=== PATIENT | female | born 1960 | race Caucasian/White ===

== ENCOUNTER 2017-02-08 14:04 | Emergency (ER) | payer OTHER ==
[2017-02-08 14:26] VITALS: RESP 18
--- NOTE | 2017-02-08 15:13 | ED PDOC ---
Arrival/HPI - General Chief Complaint: Trauma Time Seen by Provider: 02/08/17 14:30 Historian: Patient - History of Present Illness Narrative History of Present Illness (Text): 02/08/17 15:00 This 56 yo female presents to this ED c/o head injury x 1 day. Patient stated she has a PRYOR. Patient said her chair slipped causing her to fall forward hitting forehead against desk. Delta LOC, n/v, dizziness, dysarthria, diplopia , or abnormal gait. Time/Duration: Other (1 day) Quality: Aching Context: Work Past Medical History - Provider Review Nursing Documentation Reviewed: Yes - Infectious Disease Hx of Infectious Diseases: None - Reproductive Menopause: No - Psychiatric Hx Substance Use: No Family/Social History - Physician Review Nursing Documentation Reviewed: Yes Family/Social History: No Known Family HX Smoking Status: Never Smoked Hx Alcohol Use: No Hx Substance Use: No Allergies/Home Meds Allergies/Adverse Reactions: Allergies No Known Allergies Allergy (Verified 02/08/17 14:26) Review of Systems - Review of Systems Constitutional: Normal. absent: Fatigue, Weight Change, Fevers Eyes: Normal. absent: Vision Changes, Photophobia, Eye Pain ENT: Normal Respiratory: Normal Cardiovascular: Normal Gastrointestinal: Normal. absent: Nausea, Vomiting Genitourinary Female: Normal Musculoskeletal: Normal Skin: Normal Neurological: Headache. absent: Dizziness, Focal Weakness, Gait Changes, Speech Changes, Facial Droop, Disequilibrium, Seizure Endocrine: Normal Hemo/Lymphatic: Normal Psychiatric: Normal Physical Exam Vital Signs Temp Pulse Resp BP Pulse Ox 02/08/17 15:18 98.0 F 91 H 18 131/79 98 02/08/17 14:22 98.4 F 110 H 18 133/84 100 Temperature: Afebrile Blood Pressure: Normal Pulse: Regular Respiratory Rate: Normal Appearance: Positive for: Well-Appearing, Non-Toxic, Comfortable Pain Distress: None Mental Status: Positive for: Alert and Oriented X 3 - Systems Exam Head: Present: Atraumatic, Normocephalic, Other (No raccoon sign. No beckham sign). No: Tenderness, Contusion, Swelling, Ecchymosis, Abrasion Pupils: Present: PERRL, Other (no hyphema) Extroacular Muscles: Present: EOMI. No: Entrapment Conjunctiva: Present: Normal Ears: Present: Normal, NORMAL TM, Normal Canal, Other (no hemotympanum). No: Erythema, TM Bulging, Fluid, TM Perf Mouth: Present: Moist Mucous Membranes, Normal Lips, Normal Tounge. No: Drooling Pharnyx: Present: Normal. No: ERYTHEMA, EXUDATE, TONSILS ENLARGED Nose (External): Present: Atraumatic Nose (Internal): Present: Normal Inspection Neck: Present: Normal Range of Motion, Trachea Midline. No: Meningeal Signs, MIDLINE TENDERNESS, Paraspinal Tenderness, JVD, Lymphadenopathy Respiratory/Chest: Present: Clear to Auscultation, Good Air Exchange. No: Respiratory Distress, Accessory Muscle Use, Tender to Palpation Cardiovascular: Present: Regular Rate and Rhythm, Normal S1, S2. No: Murmurs Abdomen: Present: Normal Bowel Sounds. No: Tenderness, Distention, Peritoneal Signs Back: Present: Normal Inspection. No: CVA Tenderness, Midline Tenderness, Paraspinal Tenderness, Pain with Leg Raise Upper Extremity: Present: Normal Inspection, Normal ROM, NORMAL PULSES, Neurovascularly Intact. No: Cyanosis, Edema Lower Extremity: Present: Normal Inspection, Normal ROM, Capillary Refill < 2 s. No: Edema Neurological: Present: GCS=15, CN II-XII Intact, Speech Normal, Motor Func Grossly Intact, Normal Sensory Function, Normal Cerebellar Funct, Norm Deep Tendon Reflexes, Gait Normal, Memory Normal, Other (No neuro focal deficits) Skin: Present: Warm, Dry, Normal Color. No: Rashes Psychiatric: Present: Alert, Oriented x 3, Normal Insight, Normal Concentration Medical Decision Making ED Course and Treatment: 02/08/17 15:12 Patient refused pain medication. She is requesting CT scan of head. 02/08/17 16:12 Re-evaluation. Patient feels better. Discussed results and plan with patient who expresses understanding. All questions answered and there is agreement with the plan to discharge home with instructions. Patient stable for discharge. Return if symptoms persist or worsen. Re-evaluation Time: 16:13 Reassessment Condition: Re-examined, Improved - RAD Interpretation Narrative RAD Interpretations (Text): 02/08/17 16:04 Patient Name / ID : MARQUIS SINGH / [id number] Exam Date : 02/08/2017 15:36:19 ( Approved ) Study Comment : Sex / Age : F / 56Y Creator : Corina Garcia Dictator : Corina Garcia Jd Edwards Developer : Supervisor Safety Deposit : Corina Garcia Approver2 : Report Date : 02/08/2017 15:50:53 My Comment : PROCEDURE: CT HEAD WITHOUT CONTRAST. HISTORY: PRYOR s/p head injury COMPARISON: None available. TECHNIQUE: Axial computed tomography images were obtained through the head/brain without intravenous contrast. Radiation dose: Total exam DLP = 700.55 mGy-cm. FINDINGS: HEMORRHAGE: No intracranial hemorrhage. BRAIN: No mass effect or edema. No atrophy or chronic microvascular ischemic changes. VENTRICLES: Unremarkable. No hydrocephalus. CALVARIUM: Unremarkable. PARANASAL SINUSES: Unremarkable as visualized. No significant inflammatory changes. MASTOID AIR CELLS: Partial opacification of the mastoids is noted. OTHER FINDINGS: None. IMPRESSION: No evidence of acute intracranial hemorrhage intracranial collection mass effect or midline shift. Partial opacification of the mastoid suggestive of mastoiditis. Radiology Orders: 02/08/17 15:10 HEAD W/O CONTRAST [CT] Stat - Medication Orders Current Medication Orders: Discontinued Medications Ibuprofen (Motrin Tab) 600 mg PO STAT STA Stop: 02/08/17 16:13 Last Admin: 02/08/17 16:25 Dose: 600 MG MAR Pain/Vitals Document 02/08/17 16:25 SE (Rec: 02/08/17 16:25 SE [id number]) Pain Reassessment Is This A Pain ReAssessment? No Sleep Is patient sleeping during reassessment? No Presence of Pain Presence of Pain Yes Pain Scale Used Pain Scale Used Numeric Location Pain Location [facility] Disposition/Present on Arrival - Present on Arrival Any Indicators Present on Arrival: No History of DVT/PE: No History of Uncontrolled Diabetes: No Urinary Catheter: No History of Decub. Ulcer: No History Surgical Site Infection Following: None - Disposition Have Diagnosis and Disposition been Completed?: Yes Diagnosis: Closed head injury, Mastoiditis Disposition: HOME/ ROUTINE Disposition Time: 16:14 Patient Plan: Discharge Condition: GOOD Discharge Instructions (ExitCare): Mastoiditis (ED) Additional Instructions: Call private doctor or worker comp doctor for follow up visit in 1-2 days. Take medication as instructed. Return to emergency if symptoms worsen. Prescriptions: Amoxicillin/Clavulanate [Augmentin 875 MG-125 MG] 1 tab PO BID #20 tab Sulfamethoxazole/Trimethoprim [Bactrim DS 800 mg-160 mg] 1 tab PO BID #20 tab Ibuprofen [Motrin] 400 mg PO Q8H PRN #20 tab PRN Reason: Pain, Moderate (4-7) Famotidine [Pepcid] 40 mg PO DAILY #10 tablet Referrals: Carmen Barr MD [Staff Provider] - Follow up with primary Forms: WORK NOTE
[2017-02-08 15:38] VITALS: BP 131/79; PULSE 91; TEMP 98; O2SAT 98
--- NOTE | 2017-02-08 15:52 | CT ---
PROCEDURE: CT HEAD WITHOUT CONTRAST. HISTORY: PRYOR s/p head injury COMPARISON: None available. TECHNIQUE: Axial computed tomography images were obtained through the head/brain without intravenous contrast. Radiation dose: Total exam DLP = 700.55 mGy-cm. FINDINGS: HEMORRHAGE: No intracranial hemorrhage. BRAIN: No mass effect or edema. No atrophy or chronic microvascular ischemic changes. VENTRICLES: Unremarkable. No hydrocephalus. CALVARIUM: Unremarkable. PARANASAL SINUSES: Unremarkable as visualized. No significant inflammatory changes. MASTOID AIR CELLS: Partial opacification of the mastoids is noted. OTHER FINDINGS: None. IMPRESSION: No evidence of acute intracranial hemorrhage intracranial collection mass effect or midline shift. Partial opacification of the mastoid suggestive of mastoiditis.
== END 2017-02-08 16:32 | disposition home or self-care (01) ==
LOC: ED 14:04
DX: S09.90XA Unspecified injury of head, initial encounter (principal); W07.XXXA Fall from chair, initial encounter

== ENCOUNTER 2018-11-28 10:32 | Emergency (ER) | payer BC, OTHER ==
[2018-11-28 10:42] VITALS: RESP 18; TEMP 98.1
[2018-11-28 10:43] VITALS: BMI 34.5
[2018-11-28] MEDS ORDERED: Sodium Chloride 0.9% 1,000 ML IV STA (10:58)
--- NOTE | 2018-11-28 11:17 | ED PDOC ---
Arrival/HPI - General Chief Complaint: Dizziness/Lightheaded Historian: Patient - History of Present Illness Narrative History of Present Illness (Text): 11/28/18 11:11 58 y/o F w/ h/o CAD s/p cardiac cath, HTN and CHF presenting to the Emergency Department with complaint of dizziness ongoing for the last 24 hours. The patient states her symptoms began yesterday, describing her dizziness as the room spinning unchanged by positional changes, but mitigated by closing her eyes. She reports being able to get through her workday yesterday, but unable to concentrate at work due to worsening symptoms. She describes nausea, dysequilibrium, pre-syncopal episodes and chest tightness. She reports increased anxiety and stress at work and denies any previous history of similar episodes. Time/Duration: 24 hours Symptom Onset: Gradual Symptom Course: Unchanged Quality: Tightness Severity Level: Moderate Activities at Onset: Rest Context: Home, Work Past Medical History - Provider Review Nursing Documentation Reviewed: Yes - Travel History Have you recently traveled outside [place] w/in the past 3 mons?: No - Infectious Disease Hx of Infectious Diseases: None - Cardiac Hx Congestive Heart Failure: Yes Hx Hypertension: Yes Other/Comment: cardia cath - Psychiatric Hx Substance Use: No Family/Social History - Physician Review Nursing Documentation Reviewed: Yes Family/Social History: Unknown Family HX Smoking Status: Heavy Smoker > 10 Cigarettes Daily Hx Alcohol Use: Yes Frequency of alcohol use: Socially Hx Substance Use: No Allergies/Home Meds Allergies/Adverse Reactions: Allergies No Known Allergies Allergy (Verified 02/08/17 14:26) Review of Systems - Physician Review All systems were reviewed & negative as marked: Yes - Review of Systems Cardiovascular: absent: Syncope Gastrointestinal: absent: Abdominal Pain Neurological: Headache, Dizziness, Disequilibrium Physical Exam Vital Signs Reviewed: Yes Vital Signs Temp Pulse Resp BP Pulse Ox 11/28/18 10:33 98.1 F 78 18 157/80 H 97 Temperature: Afebrile Blood Pressure: Hypertensive Pulse: Regular Respiratory Rate: Normal Appearance: Positive for: Well-Appearing, Non-Toxic, Comfortable Mental Status: Positive for: Alert and Oriented X 3 - Systems Exam Head: Present: Atraumatic, Normocephalic Pupils: Present: PERRL, Other (No nsytagmus or strabismus noted) Extroacular Muscles: Present: EOMI Conjunctiva: Present: Normal Mouth: Present: Moist Mucous Membranes Neck: Present: Normal Range of Motion Respiratory/Chest: Present: Clear to Auscultation, Good Air Exchange. No: Respiratory Distress Cardiovascular: Present: Regular Rate and Rhythm, Normal S1, S2 Abdomen: Present: Normal Bowel Sounds. No: Tenderness, Distention, Peritoneal Signs Upper Extremity: Present: Normal Inspection, Capillary Refill < 2s Lower Extremity: Present: Normal Inspection Neurological: Present: GCS=15, CN II-XII Intact, Speech Normal, Normal Sensory Function, Normal Cerebellar Funct Skin: Present: Warm, Dry, Normal Color Psychiatric: Present: Alert, Oriented x 3, Normal Insight, Normal Concentration Medical Decision Making ED Course and Treatment: 11/28/18 11:18 Impression Differential Diagnoses Include But Are Not Limited To: Plan Progress Notes - Medication Orders Current Medication Orders: Sodium Chloride (Sodium Chloride 0.9%) 1,000 mls @ 999 mls/hr IV .Q1H1M STA Stop: 11/28/18 11:58 Disposition/Present on Arrival - Present on Arrival Any Indicators Present on Arrival: No History of DVT/PE: No History of Uncontrolled Diabetes: No Urinary Catheter: No History of Decub. Ulcer: No History Surgical Site Infection Following: None - Disposition Have Diagnosis and Disposition been Completed?: Yes Diagnosis: Vertigo, Anxiety Disposition: HOME/ ROUTINE Disposition Time: 13:01 Patient Plan: Discharge Condition: STABLE Discharge Instructions (ExitCare): Anxiety, Adult (DC), Vertigo (a Type of Dizziness) (DC), Dizziness, Nonvertigo, (DC) Print Language: ZAMBIAN Additional Instructions: Please follow up with your PCP in 1-2 days Prescriptions: Meclizine [Antivert] 12.5 mg PO PRN PRN #6 tab PRN Reason: Dizziness Forms: [facility] ([place] Islander), WORK NOTE
[2018-11-28 12:19] LABS: BASO # 0.02 K/mm3 (0.0-2.0); BASO % 0.3 % (0.0-3.0); EOS # 0.1 (0.0-0.7); EOS % 0.8 % (1.5-5.0); GRAN # 4.45 (1.4-6.5); GRAN % 61.6 % (50.0-68.0); HEMOGLOBIN 13.9 g/dL (12.0-16.0); LYMPH # 2.3 (1.2-3.4); LYMPH % 32.2 % (22.0-35.0); MEAN CELL VOLUME 89.2 fl (80.0-105.0); MEAN CORPUSCULAR HEMOGLOBIN 28.8 pg (25.0-35.0); MEAN CORPUSCULAR HGB CONC 32.3 g/dl (31.0-37.0); MONO # 0.4 (0.1-0.6); MONO % 5.1 % (1.0-6.0); RBC 4.83 10^6/uL (3.5-6.1); RED CELL DISTRIBUTION WIDTH 13.7 % (11.5-14.5); WHITE BLOOD COUNT 7.2 10^3/uL (4.5-11.0)
[2018-11-28 12:31] LABS: ALB/GLOB RATIO 1.2 (1.1-1.8); ALBUMIN 4.2 g/dL (3.0-4.8); ALT/SGPT 37 U/L (7-56); AST/SGOT 26 U/L (14-36); BLOOD UREA NITROGEN 15 mg/dL (7-21); CALCIUM 9.6 mg/dL (8.4-10.5); GFR NON-AFRICAN AMERICAN > 60
--- NOTE | 2018-11-28 12:34 | RAD ---
Date of service: 11/28/2018 HISTORY: sob COMPARISON: No prior. FINDINGS: LUNGS: No active pulmonary disease. PLEURA: No significant pleural effusion identified, no pneumothorax apparent. CARDIOVASCULAR: No aortic atherosclerotic calcification present. Normal cardiac size. No pulmonary vascular congestion. OSSEOUS STRUCTURES: No significant abnormalities. VISUALIZED UPPER ABDOMEN: Normal. OTHER FINDINGS: None. IMPRESSION: No active disease.
--- NOTE | 2018-11-28 12:36 | RAD ---
PROCEDURE: Left Hip and pelvis x-ray Radiographs. HISTORY: pain COMPARISON: None. FINDINGS: BONES: Normal. No fracture. JOINTS: Normal. SOFT TISSUES: Normal. OTHER FINDINGS: None. IMPRESSION: Negative study
[2018-11-28 12:40] LABS: TROPONIN I < 0.01 ng/mL
[2018-11-28 13:23] VITALS: BP 144/73; PULSE 80; O2SAT 99
--- NOTE | 2018-11-28 20:38 | CARD ---
APPROVED REPORT Date of service: 11/28/2018 EKG Measurement Heart [id number] <Conclusion> Sinus rhythm with 1st degree AV block Voltage criteria for left ventricular hypertrophy Nonspecific T wave abnormality Abnormal ECG
== END 2018-11-28 13:34 | disposition home or self-care (01) ==
LOC: ED 10:32
DX: R42 Dizziness and giddiness (principal); F41.9 Anxiety disorder, unspecified; I25.10 Atherosclerotic heart disease of native coronary artery without angina pectoris; I11.0 Hypertensive heart disease with heart failure; I50.9 Heart failure, unspecified; F17.210 Nicotine dependence, cigarettes, uncomplicated
CPT/HCPCS: 71045; 73502; 80053; 83735; 84484; 85025; 93005; 96374; 99285; J2765; J7030